=== PATIENT | male | born 1960 | race Caucasian/White ===

== ENCOUNTER 2019-01-09 22:00 | Emergency (ER) | payer MEDICARE ==
[~2019-01-09] VITALS: Ht 175.3 cm; Wt 81.6 kg
[2019-01-09 22:50] LABS: BILIRUBIN,URINE NEGATIVE (NEGATIVE); UROBILINOGEN,URINE NORMAL (NEGATIVE)
[2019-01-09 22:56] LABS: BASOPHIL # 0.1 10^3/uL (0.0-0.1); BASOPHIL % 0.6 % (0.0-0.2); EOSINOPHIL # 0.4 10^3/uL (0.0-0.2); EOSINOPHIL % 3.9 % (0.0-5.0); HEMOGLOBIN 16.4 g/dL (13.9-16.3); LYMPHOCYTES # 1.9 10^3/uL (1.0-4.8); LYMPHOCYTES % 18.8 % (24.0-44.0); MEAN CELL HGB 33.8 pg (26-34); MEAN CELL HGB CONCENTRATION 34.7 g/dL (33-37); MEAN CORP VOLUME 97.3 fL (78-100); MEAN PLATELET VOLUME 9.7 fL (7.8-11.0); MONOCYTES # 1.2 10^3/uL (0.3-0.8); MONOCYTES % 11.5 % (5.0-12.0); NEUTROPHIL # 6.5 10^3/uL (1.8-7.7); NEUTROPHILS % 64.9 % (41.0-85.0); RED CELL DISTRIBUTION WIDTH 17.5 % (11.5-14.5)
[2019-01-09 22:56] LABS: APPEARANCE,URINE CLOUDY (CLEAR); UA COLOR RED (YELLOW)
--- NOTE | 2019-01-09 23:05 | DIREP ---
PROCEDURE:CT ABD/PELVIS WITHOUT CONTRAST TECHNIQUE:Axial cuts were obtained through the abdomen and pelvis without IV contrast. The images were viewed at lung and soft tissue settings. Sagittal and coronal reconstructions are provided. COMPARISON:None. INDICATIONS:Hematuria FINDINGS: LOWER CHEST:Streaky changes left lung base consistent with either scarring or subsegmental atelectasis. There are coronary artery calcifications. There is a small hiatal hernia. LIVER:Normal. BILIARY:Normal. PANCREAS:Normal. SPLEEN:Normal. URINARY TRACT:8 mm cortical stone left upper kidney. Tiny 2 mm nonobstructing stone lower right renal collecting system series 2, image 41. No stones in the left kidney. There is a 3.5 cm cyst along the lateral margin of the left kidney. There are no ureteral stones. There is no hydronephrosis or hydroureter. The bladder is normal. ADRENALS:Normal. AORTA/VASCULAR:Extensive arterial calcifications. RETROPERITONEUM:Normal. BOWEL/MESENTERY:Normal. Appendix not clearly seen but no inflammatory changes right lower quadrant. ABDOMINAL WALL:Normal. PELVIS:Calcifications in the prostate gland. BONES:Narrowing L1-L2 disc asymmetrically to the left with mild dextroscoliosis at this level. OTHER:Normal. CONCLUSION: 1. Nonobstructing stones in the right kidney. 2. Subsegmental atelectasis versus scarring left lung base. 3. Atherosclerosis. Dictated by: Zeyad Scott M.D. on 01/09/2019 at 11:00 PM
[2019-01-09] MEDS ORDERED: TORADOL IM STA (23:10)
[2019-01-09 23:11] LABS: CALCIUM 9.2 mg/dL (8.4-10.5)
--- NOTE | 2019-01-09 23:13 | ER.PDOC ---
General Chief Complaint: Requesting Medical Care Stated Complaint: MALE Time seen by MD: 23:11 Source: patient Exam Limitations: no limitations History of Present Illness Initial Comments Right flank pain and passing blood in urine for 1 week Timing/Duration: intermittent Severity/Quality: moderate, sharpness Radiation: RLQ Associated Symptoms: back pain Exacerbated by: nothing Relieved By: nothing Past Medical History Medical History: other (kidney stone) Family History Significant Family History: no pertinent family hx Constitutional: no symptoms reported Respiratory: no symptoms reported Cardiovascular: no symptoms reported Gastrointestinal: see HPI Genitourinary: see HPI All Other Systems: Reviewed and Negative Physical Exam General Appearance: No Apparent Distress, WD/WN Neck: Non-Tender, Full Range of Motion, Supple, Normal Inspection Respiratory: chest non-tender, lungs clear, normal breath sounds, no respiratory distress, no accessory muscle use Cardiovascular: Normal Peripheral Pulses, Regular Rate, Rhythm, No Edema, No Gallop, No JVD, No Murmur Gastrointestinal: Normal Bowel Sounds, No Organomegaly, No Pulsatile Mass, Tenderness (RLQ) Back: Normal Inspection, No CVA Tenderness, No Vertebral Tenderness Extremities: Normal Range of Motion, Non-Tender, Normal Inspection, No Pedal Edema, No Calf Tenderness, Normal Capillary Refill, Pelvis Stable Neurologic/Psychiatric: surface grinder tender II-XII NML as Tested, No Motor/Sensory Deficits, Alert, Normal Mood/Affect, Oriented x 3 Skin: Normal Color, Warm/Dry Results/Orders Results/Orders Orders - KERRI MARCIAL MD Cbc With Auto Diff (01/09/19 22:39) Comprehensive Metabolic Panel (01/09/19 22:39) PT (01/09/19 22:39) Partial Thromboplastin Time. (01/09/19 22:39) Urinalysis (01/09/19 22:39) Ct Abd/Pelvis Wo Iv Contrast (01/09/19 22:39) Ketorolac Tromethamine (Toradol) (01/09/19 23:10) Laboratory Tests Test 01/09/19 22:08 01/09/19 22:47 Urine Collection Type VOID Urine Color RED (YELLOW) H Urine Appearance CLOUDY (CLEAR) H Urine Bilirubin NEGATIVE MG/DL (NEGATIVE) Urine Ketones NEGATIVE (NEGATIVE) Urine Specific [place] 1.020 (1.005-1.035) Urine pH 6 (5.0-6.0) Urine Protein 30 mg/dL (NEGATIVE) H Urine Urobilinogen NORMAL (NEGATIVE) Urine Nitrate NEGATIVE (NEGATAIVE) Urine Leukocyte Esterase NEGATIVE (NEGATIVE) Urine Blood 250 4+ (NEGATIVE) H Urine RBC TNTC RBC/HPF (NONE SEEN) H Urine WBC 0-2 WBC/HPF (0-2) Urine Squamous Epithelial Cells RARE #/HPF (FEW) Urine Bacteria NONE SEEN (NONE SEEN) Urine Glucose NORMAL (NEGATIVE) White Blood Count 10.0 10^3/uL (4.5-11.0) Red Blood Count 4.85 10^6/uL (4.50-5.90) Hemoglobin 16.4 g/dL (13.9-16.3) H Hematocrit 47.2 % (37.0-53.0) Mean Corpuscular Volume 97.3 fL (78-100) Mean Corpuscular Hemoglobin 33.8 pg (26-34) Mean Corpuscular Hemoglobin Concent 34.7 g/dL (33-37) Red Cell Distribution Width 17.5 % (11.5-14.5) H Platelet Count 241 10^3/uL (150-400) Mean Platelet Volume 9.7 fL (7.8-11.0) Neutrophils (%) (Auto) 64.9 % (41.0-85.0) Lymphocytes (%) (Auto) 18.8 % (24.0-44.0) L Monocytes (%) (Auto) 11.5 % (5.0-12.0) Neutrophils # (Auto) 6.5 10^3/uL (1.8-7.7) Lymphocytes # (Auto) 1.9 10^3/uL (1.0-4.8) Monocytes # (Auto) 1.2 10^3/uL (0.3-0.8) H Absolute Immature Granulocyte (auto 0.03 10^3 u/L (0-2) Immature Granulocytes % 0.30 % (0.00-0.50) Eosinophils % 3.9 % (0.0-5.0) Basophils % 0.6 % (0.0-0.2) H Basophils # 0.1 10^3/uL (0.0-0.1) Eosinophil Count 0.4 10^3/uL (0.0-0.2) H Prothrombin Time 10.4 SEC (9.4-11.5) Prothrombin Time INR (Non-Therap) 1.0 Activated Partial Thromboplast Time 25.0 SEC (24.67-30.72) Sodium Level 144 mmol/L (132-145) Potassium Level 3.2 mmol/L (3.6-5.2) L Chloride Level 108.0 mmol/L (96-109) Carbon Dioxide Level 27.0 mmol/L (20.0-32) Anion Gap 12.2 Blood Urea Nitrogen 22 mg/dL (7-18) H Creatinine 0.95 mg/dL (0.59-1.40) Estimated GFR () 97.9 (>/=60) BUN/Creatinine Ratio 23.0 Glucose Level 110 mg/dL (70-110) Calcium Level 9.2 mg/dL (8.4-10.5) Total Bilirubin 0.7 mg/dL (0.2-1.0) Aspartate Amino Transferase (AST) 23 U/L (0-35) Alanine Aminotransferase (ALT) 34 U/L (12-78) Alkaline Phosphatase 122 U/L (50-136) Total Protein 6.6 g/dL (6.4-8.2) Albumin 3.5 g/dL (3.4-5.0) Globulin 3.[address] abdomen/pelvis: 1. Nonobstructing stones in the right kidney. 2. Subsegmental atelectasis versus scarring left lung base. 3. Atherosclerosis. Course Vitals & review Data Laboratory Tests Test 01/09/19 22:08 01/09/19 22:47 Urine Collection Type VOID Urine Color RED Urine Appearance CLOUDY Urine Bilirubin NEGATIVE MG/DL Urine Ketones NEGATIVE Urine Specific [place] 1.020 Urine pH 6 Urine Protein 30 mg/dL Urine Urobilinogen NORMAL Urine Nitrate NEGATIVE Urine Leukocyte Esterase NEGATIVE Urine Blood 250 4+ Urine RBC TNTC RBC/HPF Urine WBC 0-2 WBC/HPF Urine Squamous Epithelial Cells RARE #/HPF Urine Bacteria NONE SEEN Urine Glucose NORMAL White Blood Count 10.0 10^3/uL Red Blood Count 4.85 10^6/uL Hemoglobin 16.4 g/dL Hematocrit 47.2 % Mean Corpuscular Volume 97.3 fL Mean Corpuscular Hemoglobin 33.8 pg Mean Corpuscular Hemoglobin Concent 34.7 g/dL Red Cell Distribution Width 17.5 % Platelet Count 241 10^3/uL Mean Platelet Volume 9.7 fL Neutrophils (%) (Auto) 64.9 % Lymphocytes (%) (Auto) 18.8 % Monocytes (%) (Auto) 11.5 % Neutrophils # (Auto) 6.5 10^3/uL Lymphocytes # (Auto) 1.9 10^3/uL Monocytes # (Auto) 1.2 10^3/uL Absolute Immature Granulocyte (auto 0.03 10^3 u/L Immature Granulocytes % 0.30 % Eosinophils % 3.9 % Basophils % 0.6 % Basophils # 0.1 10^3/uL Eosinophil Count 0.4 10^3/uL Prothrombin Time 10.4 SEC Prothrombin Time INR (Non-Therap) 1.0 Activated Partial Thromboplast Time 25.0 SEC Sodium Level 144 mmol/L Potassium Level 3.2 mmol/L Chloride Level 108.0 mmol/L Carbon Dioxide Level 27.0 mmol/L Anion Gap 12.2 Blood Urea Nitrogen 22 mg/dL Creatinine 0.95 mg/dL Estimated GFR () 97.9 BUN/Creatinine Ratio 23.0 Glucose Level 110 mg/dL Calcium Level 9.2 mg/dL Total Bilirubin 0.7 mg/dL Aspartate Amino Transf (AST/SGOT) 23 U/L Alanine Aminotransferase (ALT/SGPT) 34 U/L Alkaline Phosphatase 122 U/L Total Protein 6.6 g/dL Albumin 3.5 g/dL Globulin 3.1 Departure Time of Disposition: 23:17 Disposition: 01 HOME, SELF-CARE Impression: Primary Impression: Right nephrolithiasis Condition: Improved Referrals: PCP,UNKNOWN (PCP) PRIMARY CARE PROVIDER Additional Instructions: Ibuprofen F/U with Dr. Love next week, call for appointment Duration or Time Spent with Pa: 60 mins AGGIE,KERRI Salomon MD Jan 09, 2019 23:12
[2019-01-09] MEDS ORDERED: TORADOL ONE (23:15)
[2019-01-09 23:52] VITALS: BP 151/107
[2019-01-09 23:56] VITALS: BP 151/107
== END 2019-01-09 23:22 | disposition home or self-care (01) ==
LOC: ER 22:00
DX: N20.0 Calculus of kidney (principal); Z87.442 Personal history of urinary calculi
CPT/HCPCS: 36415; 74176; 80053; 81000; 85025; 85610; 85730; 96372; 99284; J1885

== ENCOUNTER 2019-01-14 17:30 | Emergency (ER) | payer MEDICARE ==
[~2019-01-14] VITALS: Ht 185.4 cm; Wt 76.2 kg
--- NOTE | 2019-01-14 17:37 | NUR ---
ARRIVAL PT ARRIVED AMBULATORY TO ER 8 C/O BILATERAL FLANK PAIN. PT STATES WAS SEEN HERE EARLIER THIS WEEK FOR SAME COMPLAINT. PT STATES WAS TOLD HE HAD KIDNEY STONES AND TO FOLLOW UP WITH DR BOLANOS. PT STATES HAS APPOINTMENT MADE WITH DR BOLANOS ON 01/23/19. NO ACUTE DISTRESS NOTED. EDP NOTIFIED OF PT ARRIVAL.
[2019-01-14 17:54] VITALS: BP 182/104
--- NOTE | 2019-01-14 18:07 | ER.PDOC ---
General Chief Complaint: Flank Pain Stated Complaint: ABD PAIN Time seen by MD: 18:00 Source: patient, family Exam Limitations: no limitations History of Present Illness Initial Comments history of recurrent renal lithiasis; seen here by Dr. Arreguin with + CTabd/pelvis that did note stones; his appointment with Dr. Richardson is not until Jan 23; pain is worsening; barely able to void; blood and clots in urine Pt states that after Toradol, which he had many times, he started feeling pain on left side, divided right on midline, arm, chest, shoulder, leg Timing/Duration: 1 week (2 weeks), getting worse Severity/Quality: moderate Radiation: no radiation Associated Symptoms: denies symptoms Exacerbated by: nothing Relieved By: nothing Allergies: Coded Allergies: meperidine (Verified Allergy, Unknown, 01/09/19) morphine (Verified Allergy, Unknown, 01/09/19) Vital Signs First Vital Signs Date Time Temp Pulse Resp B/P (MAP) Pulse Ox O2 Delivery O2 Flow Rate FiO2 01/14/19 17:37 97.8 71 17 99 Room Air 01/14/19 17:54 182/104 (130) Last Vital Signs Date Time Temp Pulse Resp B/P (MAP) Pulse Ox O2 Delivery O2 Flow Rate FiO2 01/14/19 20:45 67 16 164/97 (119) 96 Room Air 01/14/19 19:00 97.8 Past Medical History Medical History: cardiac problems, heart attack, other (recurrent renal lithiasis with history of obstruction) Surgical History: coronary bypass surgery, stent (renal stent) Family History Significant Family History: no pertinent family hx Social History Smoking: less than 1 pack/day Alcohol Use: none Drug Use: marijuana Constitutional: no symptoms reported EENTM: no symptoms reported Respiratory: no symptoms reported Cardiovascular: no symptoms reported Gastrointestinal: nausea Genitourinary: flank pain, hematuria, urgency Musculoskeletal: no symptoms reported Skin: no symptoms reported All Other Systems: Reviewed and Negative Physical Exam General Appearance: No Apparent Distress Respiratory: chest non-tender, lungs clear Cardiovascular: Normal Peripheral Pulses, Regular Rate, Rhythm, No Edema Gastrointestinal: Normal Bowel Sounds Extremities: Non-Tender, Normal Inspection Skin: Normal Color Lymphatic: No Adenopathy Results/Orders Results/Orders Orders - KEVIN PALMER MD Ekg-Routine (01/14/19 19:29) 0.9 % Sodium Chloride (Ns 1000ml) (01/14/19 20:00) Troponin I (01/14/19 19:40) Nalbuphine Hcl (Nubain) (01/14/19 19:44) Ct Head Wo Contrast (01/14/19 21:43) Vital Signs Date Time Temp Pulse Resp B/P (MAP) Pulse Ox O2 Delivery O2 Flow Rate FiO2 01/14/19 20:45 67 16 164/97 (119) 96 Room Air 01/14/19 20:00 74 16 143/104 (117) 97 Room Air 01/14/19 19:00 97.8 60 16 143/91 (108) 98 Room Air 01/14/19 17:54 97.8 77 17 01/14/19 17:54 97.8 71 17 182/104 (130) 99 Room Air 01/14/19 17:37 97.8 71 17 99 Room Air Administered Medications Medications (Trade) Dose Ordered Sig/Ekaterina Route PRN Reason Start Time Stop Time Status Last Admin Dose Admin Ketorolac Tromethamine (Toradol) 30 mg STAT STAT IV 01/14/19 18:12 01/14/19 18:15 DC 01/14/19 18:58 30 MG Nalbuphine HCl (Nubain) 10 mg STAT STAT IV 01/14/19 19:44 01/14/19 19:45 DC 01/14/19 19:48 10 MG Sodium Chloride 1,000 ml @ 1,000 mls/hr Q1H ONCE IV 01/14/19 20:00 01/14/19 20:59 DC 01/14/19 19:48 1,000 MLS/HR Laboratory Tests Test 01/14/19 00:00 01/14/19 18:30 Urine Collection Type UNKNOWN Urine Color RED (YELLOW) H Urine Appearance CLOUDY (CLEAR) H Urine Bilirubin NEGATIVE MG/DL (NEGATIVE) Urine Ketones NEGATIVE (NEGATIVE) Urine Specific [place] 1.015 (1.005-1.035) Urine pH 7 (5.0-6.0) Urine Protein 30 mg/dL (NEGATIVE) H Urine Urobilinogen NORMAL (NEGATIVE) Urine Nitrate NEGATIVE (NEGATAIVE) Urine Leukocyte Esterase 100/ul 1+ (NEGATIVE) Urine Blood 250 4+ (NEGATIVE) H Urine RBC TNTC RBC/HPF (NONE SEEN) H Urine WBC 2-5 WBC/HPF (0-2) Urine Squamous Epithelial Cells NONE SEEN #/HPF (FEW) Urine Bacteria FEW (NONE SEEN) H Urine Glucose NORMAL (NEGATIVE) White Blood Count 9.6 10^3/uL (4.5-11.0) Red Blood Count 5.09 10^6/uL (4.50-5.90) Hemoglobin 16.8 g/dL (13.9-16.3) H Hematocrit 50.7 % (37.0-53.0) Mean Corpuscular Volume 99.6 fL (78-100) Mean Corpuscular Hemoglobin 33.0 pg (26-34) Mean Corpuscular Hemoglobin Concent 33.1 g/dL (33-37) Red Cell Distribution Width 16.4 % (11.5-14.5) H Platelet Count 251 10^3/uL (150-400) Mean Platelet Volume 9.8 fL (7.8-11.0) Neutrophils (%) (Auto) 64.5 % (41.0-85.0) Lymphocytes (%) (Auto) 20.0 % (24.0-44.0) L Monocytes (%) (Auto) 9.9 % (5.0-12.0) Neutrophils # (Auto) 6.2 10^3/uL (1.8-7.7) Lymphocytes # (Auto) 1.9 10^3/uL (1.0-4.8) Monocytes # (Auto) 1.0 10^3/uL (0.3-0.8) H Absolute Immature Granulocyte (auto 0.02 10^3 u/L (0-2) Immature Granulocytes % 0.20 % (0.00-0.50) Eosinophils % 4.6 % (0.0-5.0) Basophils % 0.8 % (0.0-0.2) H Basophils # 0.1 10^3/uL (0.0-0.1) Eosinophil Count 0.4 10^3/uL (0.0-0.2) H Sodium Level 145 mmol/L (132-145) Potassium Level 3.3 mmol/L (3.6-5.2) L Chloride Level 110.0 mmol/L (96-109) H Carbon Dioxide Level 25.2 mmol/L (20.0-32) Anion Gap 13.1 Blood Urea Nitrogen 14 mg/dL (7-18) Creatinine 0.83 mg/dL (0.59-1.40) Estimated GFR () 114.4 (>/=60) BUN/Creatinine Ratio 16.0 Glucose Level 108 mg/dL (70-110) Calcium Level 8.9 mg/dL (8.4-10.5) Total Bilirubin 0.6 mg/dL (0.2-1.0) Aspartate Amino Transferase (AST) 20 U/L (0-35) Alanine Aminotransferase (ALT) 30 U/L (12-78) Alkaline Phosphatase 134 U/L (50-136) Troponin I < 0.02 ng/mL (0.00-0.05) Total Protein 6.6 g/dL (6.4-8.2) Albumin 3.6 g/dL (3.4-5.0) Globulin 3.0 Progress Progress At the time of shift change, labs and repeat CT are pending. Report shared/care transferred to Dr. Palmer. Patient is stable at this time. Pt seemed to develop sudden pain on left side of body, shoulder, chest, leg and hip after Toradol, CT, EKG and enzymes are WNL EKG/XRAY/CT/US CT Comments: CT done 01/09/19 showed 2mm stone at the lower R renal collecting system Course Duration or Total Time Spent w: 60 mins Vitals & review Data Vital Sign - Last 24 Hours 01/14/19 01/14/19 01/14/19 01/14/19 17:37 17:54 17:54 19:00 Temp 97.8 97.8 97.8 97.8 Pulse 71 71 77 60 Resp 17 17 17 16 B/P (MAP) 182/104 (130) 143/91 (108) Pulse Ox 99 99 98 O2 Delivery Room Air Room Air Room Air 01/14/19 01/14/19 20:00 20:45 Pulse 74 67 Resp 16 16 B/P (MAP) 143/104 (117) 164/97 (119) Pulse Ox 97 96 O2 Delivery Room Air Room Air Laboratory Tests Test 01/14/19 00:00 01/14/19 18:30 Urine Collection Type UNKNOWN Urine Color RED Urine Appearance CLOUDY Urine Bilirubin NEGATIVE MG/DL Urine Ketones NEGATIVE Urine Specific [place] 1.015 Urine pH 7 Urine Protein 30 mg/dL Urine Urobilinogen NORMAL Urine Nitrate NEGATIVE Urine Leukocyte Esterase 100/ul 1+ Urine Blood 250 4+ Urine RBC TNTC RBC/HPF Urine WBC 2-5 WBC/HPF Urine Squamous Epithelial Cells NONE SEEN #/HPF Urine Bacteria FEW Urine Glucose NORMAL White Blood Count 9.6 10^3/uL Red Blood Count 5.09 10^6/uL Hemoglobin 16.8 g/dL Hematocrit 50.7 % Mean Corpuscular Volume 99.6 fL Mean Corpuscular Hemoglobin 33.0 pg Mean Corpuscular Hemoglobin Concent 33.1 g/dL Red Cell Distribution Width 16.4 % Platelet Count 251 10^3/uL Mean Platelet Volume 9.8 fL Neutrophils (%) (Auto) 64.5 % Lymphocytes (%) (Auto) 20.0 % Monocytes (%) (Auto) 9.9 % Neutrophils # (Auto) 6.2 10^3/uL Lymphocytes # (Auto) 1.9 10^3/uL Monocytes # (Auto) 1.0 10^3/uL Absolute Immature Granulocyte (auto 0.02 10^3 u/L Immature Granulocytes % 0.20 % Eosinophils % 4.6 % Basophils % 0.8 % Basophils # 0.1 10^3/uL Eosinophil Count 0.4 10^3/uL Sodium Level 145 mmol/L Potassium Level 3.3 mmol/L Chloride Level 110.0 mmol/L Carbon Dioxide Level 25.2 mmol/L Anion Gap 13.1 Blood Urea Nitrogen 14 mg/dL Creatinine 0.83 mg/dL Estimated GFR () 114.4 BUN/Creatinine Ratio 16.0 Glucose Level 108 mg/dL Calcium Level 8.9 mg/dL Total Bilirubin 0.6 mg/dL Aspartate Amino Transf (AST/SGOT) 20 U/L Alanine Aminotransferase (ALT/SGPT) 30 U/L Alkaline Phosphatase 134 U/L Troponin I < 0.02 ng/mL Total Protein 6.6 g/dL Albumin 3.6 g/dL Globulin 3.0 O2 Sat by Pulse Oximetry: 99 Departure Time of Disposition: 22:33 Disposition: 01 HOME, SELF-CARE Impression: Primary Impression: Renal colic Additional Impressions: UTI (urinary tract infection) Shoulder pain, left Condition: Stable Patient Instructions: Kidney Stones, [id number] Referrals: PCP,UNKNOWN (PCP) PRIMARY CARE PROVIDER Scripts Ciprofloxacin Hcl (CIPROFLOXACIN HCL) 500 Mg Tablet 500 MG PO BID for 10 Days, TAB Prov: KEVIN PALMER MD 01/14/19 Duration or Time Spent with Pa: 30 Return to Work/School Can a patient return to work?: No Problem Qualifiers LYNN DAVIDSON DO Jan 14, 2019 18:07 KEVIN PALMER MD Jan 14, 2019 19:43
[2019-01-14] MEDS ORDERED: TORADOL IV STA (18:12)
--- NOTE | 2019-01-14 18:20 | NUR ---
CT PT TO CT AT THIS TIME VIA WHEELCHAIR.
[2019-01-14 18:32] LABS: BASOPHIL # 0.1 10^3/uL (0.0-0.1); BASOPHIL % 0.8 % (0.0-0.2); EOSINOPHIL # 0.4 10^3/uL (0.0-0.2); EOSINOPHIL % 4.6 % (0.0-5.0); HEMOGLOBIN 16.8 g/dL (13.9-16.3); LYMPHOCYTES # 1.9 10^3/uL (1.0-4.8); MEAN CELL HGB CONCENTRATION 33.1 g/dL (33-37); MEAN CORP VOLUME 99.6 fL (78-100); MEAN PLATELET VOLUME 9.8 fL (7.8-11.0); MONOCYTES % 9.9 % (5.0-12.0); NEUTROPHIL # 6.2 10^3/uL (1.8-7.7); NEUTROPHILS % 64.5 % (41.0-85.0); RED CELL DISTRIBUTION WIDTH 16.4 % (11.5-14.5); WHITE BLOOD CELL 9.6 10^3/uL (4.5-11.0)
[2019-01-14 18:48] LABS: CALCIUM 8.9 mg/dL (8.4-10.5); CARBON DIOXIDE 25.2 mmol/L (20.0-32)
[2019-01-14] MEDS ORDERED: TORADOL ONE (18:53)
--- NOTE | 2019-01-14 18:58 | NUR ---
#22 saline lock to left inner forearm on 2nd attempt.
--- NOTE | 2019-01-14 18:59 | NUR ---
Toradol 30 mg IVP
[2019-01-14 19:00] VITALS: BP 143/91
--- NOTE | 2019-01-14 19:13 | DIREP ---
PROCEDURE:CT ABD/PELVIS W/O TECHNIQUE: COMPARISON:[facility], CT, CT ABD/PELVIS W/O, 01/09/2019, 10:48 PM. INDICATIONS:hematuria with flank pain on R FINDINGS: LOWER CHEST:There remain streaky changes in the left lower lung consistent with either subsegmental atelectasis or scarring. LIVER:Normal. BILIARY:Normal. PANCREAS:Normal. SPLEEN:Normal. URINARY TRACT:5 mm stone in the mid to distal left ureter series 2, image 97 which shows distal migration as compared to previous study when it was in the upper pelvis series 2, image 45. There is mild left-sided hydroureter and hydronephrosis. There is an 8 mm cortical stone in the upper right kidney. There is a 3 mm nonobstructing stone lower right renal collecting system series 2, image 57. ADRENALS:Normal. AORTA/VASCULAR:Extensive arterial calcifications. RETROPERITONEUM:Normal. BOWEL/MESENTERY:Normal. Appendix not clearly seen but no inflammatory changes in the right lower quadrant. ABDOMINAL WALL:Normal. PELVIS:Calcification in the prostate gland. BONES:Narrowing L1-L2 disc with mild dextroscoliosis at this level. OTHER:Normal. CONCLUSION: 1. 5 mm stone in the distal left ureter which shows progression from previous study. There is left-sided hydroureter and hydronephrosis which has increased from previous study. 2. Nonobstructing stones in the right kidney. 3. Atherosclerosis. Dictated by: Zeyad Scott M.D. on 01/14/2019 at 07:03 PM
--- NOTE | 2019-01-14 19:15 | NUR ---
Pt reports pain improved to 3/10 after toradol.
--- NOTE | 2019-01-14 19:16 | NUR ---
Pt reports feeling dizzy and lightheaded.
--- NOTE | 2019-01-14 19:31 | PCM.EKG ---
[facility] Test Date: 2019-01-14 Test Time: 19:27:22 Pat Name: RATNA ESPINOZA Department: Room: Gender: M Registered Massage Therapist: carlos : 1960 Requested By: KEVIN PALMER Order Number: [id number] Reading MD: Kevin Palmer Measurements Intervals [place] Rate: 61 P: 81 MD: 149 QRS: 75 QRSD: 107 T: 77 QT: 427 QTc: 430 Interpretive Statements Sinus rhythm Probable left ventricular hypertrophy Nonspecific T abnrm, anterolateral leads No previous ECG available for comparison Electronically Signed On 01-14-2019 22:09:24 CDT by Kevin Palmer Please click the below link to view image of tracing.
[2019-01-14] MEDS ORDERED: NUBAIN ONE (19:44)
[2019-01-14] MEDS ORDERED: NS 1000ML 1,000 ML ONE (19:44)
[2019-01-14] MEDS ORDERED: NUBAIN IV STA (19:44)
--- NOTE | 2019-01-14 19:50 | NUR ---
NS one liter bolus started. Nubain 10 mg IVP administered by Vale Chang RN as witnessed by this RN. Pt reports crushing pain "like a vice" on his left chest/torso. Reports entire left side of his body hurts.
--- NOTE | 2019-01-14 19:59 | NUR ---
Mei jc in EDM - 01/14/19 at 2001 by JAC Rec'd call from lab: K+ 2.1, CK 3446, troponin 1.28. Notified Dr Palmer and Vale Chang RN.
[2019-01-14 20:00] VITALS: BP 143/104
[2019-01-14] MEDS ORDERED: NS 1000ML 1,000 ML IV ONE (20:00)
--- NOTE | 2019-01-14 20:02 | NUR ---
Notified Dr Palmer of elevated BP's, most recent reading 154/112.
--- NOTE | 2019-01-14 20:11 | NUR ---
Pt reports no improvement after nubain. Charge nurse notified.
[2019-01-14 20:45] VITALS: BP 164/97
[2019-01-14 21:13] LABS: BILIRUBIN,URINE NEGATIVE (NEGATIVE); UROBILINOGEN,URINE NORMAL (NEGATIVE)
[2019-01-14 21:22] LABS: APPEARANCE,URINE CLOUDY (CLEAR); UA COLOR RED (YELLOW)
[2019-01-14 21:45] VITALS: BP 152/93
--- NOTE | 2019-01-14 22:25 | DIREP ---
PROCEDURE:CT HEAD OR BRAIN W/O CONTRAST COMPARISON:None. INDICATIONS:Left sided pain, numbness and decreased outside solar sales consultant opn left hand TECHNIQUE:CT images were created without intravenous contrast. FINDINGS: VENTRICLES:The ventricles are normal in size and configuration. CEREBRUM:Normal cerebral morphology with appropriate mota white matter differentiation. CEREBELLUM:Negative. BRAINSTEM:Negative. BASAL CISTERNS:Negative. HEMORRHAGE:No MASS LESION:No ACUTE INFARCT:No SKULL:Normal. SINUSES:Normal. OTHER:None CONCLUSION:No acute intracranial process Dictated by: Steve Grijalva DO on 01/14/2019 at 10:23 PM
[2019-01-14 22:30] VITALS: BP 147/88
[2019-01-14] MEDS ORDERED: CIPR500T3 PO (22:36)
--- NOTE | 2019-01-14 22:45 | NUR ---
IV IV DISCONTINUED WITH TIP INTACT. PRESSURE DRESSING APPLIED.
== END 2019-01-14 22:47 | disposition home or self-care (01) ==
LOC: ER 17:30
DX: N39.0 Urinary tract infection, site not specified (principal); N23 Unspecified renal colic; M25.512 Pain in left shoulder; F17.210 Nicotine dependence, cigarettes, uncomplicated; F12.10 Cannabis abuse, uncomplicated; Z88.5 Allergy status to narcotic agent; Z88.8 Allergy status to other drugs, medicaments and biological substances
CPT/HCPCS: 36415; 70450; 74176; 80053; 81000; 84484; 85025; 87086; 93005; 96374; 96375; 99284; J1885; J2300; J7030